=== PATIENT | male | born 1990 | race Caucasian/White ===

== ENCOUNTER → 2017-09-02 | Outpatient (CLI) | payer OTHER ==
[~2017-09-02] MED LIST: INTESTINEX1 CA1 PO; PREDNISONE10 MG PO; PROTONIX40 MG PO
== END | disposition home or self-care (01) ==
LOC: TOM 07:51
DX: K50.819 Crohn's disease of both small and large intestine with unspecified complications (principal); R19.4 Change in bowel habit; R14.0 Abdominal distension (gaseous)

== ENCOUNTER 2017-09-25 08:00 | Outpatient (CLI) | payer OTHER | END 2017-09-25 15:06 | disposition home or self-care (01) | LOC: RX STUDY 08:00 | DX: K50.012 Crohn's disease of small intestine with intestinal obstruction (principal) ==

== ENCOUNTER 2017-09-29 13:04 | Inpatient (IN) | payer OTHER ==
[~2017-09-29] VITALS: Ht 170.2 cm; Wt 86.2 kg
[2017-10-07] MEDS ORDERED: PREDNISONE20 MG PO (13:16)
[2017-10-07] MEDS ORDERED: ZANTAC150 MG PO (13:17)
[2017-10-07] MEDS ORDERED: PROTONIX40 MG PO (13:17)
[2017-10-07] MEDS ORDERED: INTESTINEX680 M1 PO (13:28)
== END 2017-10-07 15:01 | disposition home or self-care (01) | DRG 386 ==
LOC: ER 13:04 → MEDI 15:52
PROC: BW21Y0Z Computerized Tomography (CT Scan) of Abdomen and Pelvis using Other Contrast, Unenhanced and Enhanced (ICD-10-PCS; 2017-09-29)
PROC: 02HV33Z Insertion of Infusion Device into Superior Vena Cava, Percutaneous Approach (ICD-10-PCS; 2017-09-30)
PROC: 3E0436Z Introduction of Nutritional Substance into Central Vein, Percutaneous Approach (ICD-10-PCS; principal; 2017-10-01)
PROC: BW21Y0Z Computerized Tomography (CT Scan) of Abdomen and Pelvis using Other Contrast, Unenhanced and Enhanced (ICD-10-PCS; 2017-10-06)
DX: K50.012 Crohn's disease of small intestine with intestinal obstruction (principal); Z79.52 Long term (current) use of systemic steroids; D64.89 Other specified anemias

== ENCOUNTER → 2022-09-18 | Emergency (ER) | payer OTHER ==
[~2022-09-18] VITALS: Ht 170.2 cm; Wt 77.1 kg
[~2022-09-18] MED LIST changes: +INTESTINEX680 M1 PO; +PREDNISONE20 MG PO; +ZANTAC150 MG PO
== END | disposition home or self-care (01) ==
LOC: ER 08:16
DX: K50.90 Crohn's disease, unspecified, without complications (principal)

== ENCOUNTER 2022-09-26 11:44 | Emergency (ER) | payer OTHER ==
[~2022-09-26] VITALS: Ht 172.7 cm; Wt 65.8 kg
[2022-09-26] MEDS ORDERED: DOCUSATE SODIU100 MG PO (15:04)
[2022-09-26] MEDS ORDERED: INTEGRA PLUS C1 EAC1 PO (15:04)
== END 2022-09-26 15:30 | disposition home or self-care (01) ==
LOC: ER 11:44
DX: D64.9 Anemia, unspecified (principal); K50.90 Crohn's disease, unspecified, without complications